=== PATIENT | female | born 1960 | race Caucasian/White ===

== ENCOUNTER 2018-11-07 15:48 | Emergency (ER) | payer BC ==
[2018-11-07] MEDS ORDERED: BOOSTRIX IM ONE (15:52)
--- NOTE | 2018-11-07 15:53 | Emergency Department Report ---
Blank Doc - Documentation Documentation: This is a 57-year-old female that presents with left middle finger lac that oc curred today. Stated was cutting kitchen and knife cut her. Denies any other compilations. stated is unsure about tetanus. This initial assessment diagnostic orders/clinical plan/treatment(s) is/are subject to change based on patient's health status, clinical progression and re- assessment by fellow clinical providers in the ED. Further treatment and workup at subsequent clinical providers discretion. Patient/guardians urged not to elope from ED s their condition may be serious if not clinically assessed and managed. Initial orders include: 1-patient sent to [facility] for further evaluation and treatment. 2- tetanus ordered
[2018-11-07 15:59] VITALS: BP 187/85
--- NOTE | 2018-11-07 17:18 | Emergency Department Report ---
ED Laceration HPI - HPI Chief Complaint: Wound/Laceration Stated Complaint: LEFT FINGER INJURY Time Seen by Provider: 11/07/18 15:51 Tetanus Status: Up to Date Laceration Symptoms: No Foreign Body Sensation, No Numbness, No Weakness Other History: Patient is a 57-year-old female was in presents to the ED complaining of a laceration to her finger. Patient was in the kitchen when she accidentally cut herself. ED Review of Systems ROS: Stated complaint: LEFT FINGER INJURY Other details as noted in HPI Constitutional: denies: chills, fever Eyes: denies: eye pain, eye discharge, vision change ENT: denies: ear pain, throat pain Respiratory: denies: cough, shortness of breath, wheezing Cardiovascular: denies: chest pain, palpitations Endocrine: no symptoms reported Gastrointestinal: denies: abdominal pain, nausea, diarrhea Genitourinary: denies: urgency, dysuria, discharge Musculoskeletal: denies: back pain, joint swelling, arthralgia Skin: denies: rash, lesions Neurological: denies: headache, weakness, paresthesias Psychiatric: denies: anxiety, depression Hematological/Lymphatic: denies: easy bleeding, easy bruising ED Past Medical Hx - Past Medical History Previous Medical History?: Yes Hx Diabetes: Yes - Surgical History Past Surgical History?: No - Social History Smoking Status: Never Smoker Substance Use Type: Prescribed - Medications Home Medications: Home Medications Medication Instructions Recorded Confirmed Last Taken Type Ibuprofen [Motrin] 600 mg PO Q8H PRN #30 tablet 11/07/18 Unknown Rx cephALEXin [Keflex] 500 mg PO Q12HR #10 cap 11/07/18 Unknown Rx Laceration Physical Exam - Exam General: Vital signs noted. No distress. Alert and acting appropriately. Laceration Location: Upper Extremity (middle finger) Laceration Exam: Yes Normal Distal CMS, No Foreign Body, No Exposed Tendon, Vessel, or Nerve, No Tendon Injury ED Course Vital Signs 11/07/18 11/07/18 15:54 15:57 Temperature 97.5 F L Pulse Rate 119 H Respiratory 20 20 Rate Blood Pressure 187/85 O2 Sat by Pulse 99 99 Oximetry ED Medical Decision Making - Medical Decision Making The 1cm laceration wound was prepped and draped in sterile fashion. Anesthesia was achieved with 4mL of 1% lidocaine. The wound was irrigated with 200cc NS and explored. There were no foreign bodies The wound was reapproximated in 1 layer with 6 sutures suing with three 3-0 monofilament sutures in the dermis with continuous sutures percutaneously. There was excellent reapproximation of the wound edges. The patient tolerated the procedure without complication Tetanus was given in ED today Discussed the patient to return in 7-10 days for suture removal Critical care attestation.: If time is entered above; I have spent that time in minutes in the direct care of this critically ill patient, excluding procedure time. ED Disposition Clinical Impression: Finger laceration Disposition: DC-01 TO HOME OR SELFCARE Is pt being admited?: No Does the pt Need Aspirin: No Condition: Stable Instructions: Suture Care (ED), Finger Laceration (ED) Additional Instructions: Make sure to follow up with the primary care physician as discussed. Take all your medications as you've been prescribed. Return to ED in 7-10 days for suture removal If you have any worsening symptoms or develop new symptoms please return to ED immediately. Prescriptions: cephALEXin [Keflex] 500 mg PO Q12HR #10 cap Ibuprofen [Motrin] 600 mg PO Q8H PRN #30 tablet PRN Reason: Pain Referrals: [facility] [Outside] - 3-5 Days Forms: Accompanied Note, Work/School Release Form(ED) Time of Disposition: 18:22
== END 2018-11-07 18:34 | disposition home or self-care (01) ==
LOC: ED 15:48
DX: S61.213A Laceration without foreign body of left middle finger without damage to nail, initial encounter (principal); E11.9 Type 2 diabetes mellitus without complications; W45.8XXA Other foreign body or object entering through skin, initial encounter; Y93.89 Activity, other specified; Y92.89 Other specified places as the place of occurrence of the external cause; Y99.8 Other external cause status
CPT/HCPCS: 90471; 90715; 99282

== ENCOUNTER 2018-11-15 09:26 | Emergency (ER) | payer BC ==
--- NOTE | 2018-11-15 10:17 | Emergency Department Report ---
Suture/Staple Removal - [facility] Chief Complaint: Laceration/Recheck/Suture Stated Complaint: STITCHES REMOVAL Time Seen by Provider: 11/15/18 09:52 When Sutures or [place] Placed: 8-10 Days Ago Wound Location: finger ED Review of Systems ROS: Stated complaint: STITCHES REMOVAL Other details as noted in HPI Comment: All other systems reviewed and negative ED Past Medical Hx - Past Medical History Previous Medical History?: Yes Hx Diabetes: Yes - Surgical History Past Surgical History?: Yes - Social History Smoking Status: Never Smoker Substance Use Type: None - Medications Home Medications: Home Medications Medication Instructions Recorded Confirmed Last Taken Type Ibuprofen [Motrin] 600 mg PO Q8H PRN #30 tablet 11/07/18 Unknown Rx cephALEXin [Keflex] 500 mg PO Q12HR #10 cap 11/07/18 Unknown Rx Suture Removal Exam - Exam General: Vital signs noted. No distress. Alert and acting appropriately. Wound: Yes Wound Dehiscence, No Pathologic Erythema, No Tenderness, No Drainage, No Pus Other Systems: All other systems reviewed and are unremarkable. ED Course Vital Signs 11/15/18 09:35 Temperature 97.5 F L Pulse Rate 97 H Respiratory 16 Rate Blood Pressure 170/68 [Left] O2 Sat by Pulse 100 Oximetry ED Recheck MDM - Medical Decision Making 57-year-old female presents with laceration suture removal. Sutures removed without any problem from the finger. No one today since. Healing well Discuss follow-up care physician. Critical care attestation.: If time is entered above; I have spent that time in minutes in the direct care of this critically ill patient, excluding procedure time. ED Disposition Clinical Impression: Visit for suture removal Disposition: TO HOME OR SELFCARE Is pt being admited?: No Does the pt Need Aspirin: No Condition: Stable Instructions: Acute Wound Care (ED) Additional Instructions: Make sure to follow up with the primary care physician as discussed. Take all your medications as you've been prescribed. If you have any worsening symptoms or develop new symptoms please return to ED immediately. Referrals: [facility] [Outside] - 3-5 Days [facility] [Outside] - 3-5 Days Time of Disposition: :17
== END 2018-11-15 10:28 | disposition home or self-care (01) ==
LOC: ED 09:26

== ENCOUNTER 2019-09-24 09:55 | Emergency (ER) | payer BC ==
[2019-09-24] MEDS ORDERED: LIDOCAINE (1%) 10 MG/1 ML VIAL 20 ML MDV INFILTRATI ONE (11:57)
--- NOTE | 2019-09-24 12:23 | Emergency Department Report ---
- General Chief complaint: Skin/Abscess/Foreign Body Stated complaint: RT UNDER ARM BOIL Time Seen by Provider: 09/24/19 11:52 Source: patient Mode of arrival: Ambulatory Limitations: No Limitations - History of Present Illness Initial comments: patient is a 58-year-old female presents emergency room with complaints of an abscess to the right axilla that began 2 weeks ago. She denies any drainage, fever, vomiting, chills, any other symptoms. She states that this has happened before. She states that she does shave her underarms. She has a PMHx of DM. she denies any allergies to medications. - Related Data Previous Rx's Medication Instructions Recorded Last Taken Type Ibuprofen [Motrin] 600 mg PO Q8H PRN #30 tablet 11/07/18 Unknown Rx cephALEXin [Keflex] 500 mg PO Q12HR #10 cap 11/07/18 Unknown Rx Allergies Allergy/AdvReac Type Severity Reaction Status Date / Time No Known Allergies Allergy Unverified 11/07/18 15:59 Abscess Boil HPI - HPI Chief Complaint: Skin/Abscess/Foreign Body Stated Complaint: RT UNDER ARM BOIL Time Seen by Provider: 09/24/19 11:52 Home Medications: Previous Rx's Medication Instructions Recorded Last Taken Type Ibuprofen [Motrin] 600 mg PO Q8H PRN #30 tablet 11/07/18 Unknown Rx cephALEXin [Keflex] 500 mg PO Q12HR #10 cap 11/07/18 Unknown Rx Allergies/Adverse Reactions: Allergies Allergy/AdvReac Type Severity Reaction Status Date / Time No Known Allergies Allergy Unverified 11/07/18 15:59 ED Review of Systems ROS: Stated complaint: RT UNDER ARM BOIL Other details as noted in HPI Comment: All other systems reviewed and negative ED Past Medical Hx - Past Medical History Hx Diabetes: Yes - Social History Smoking Status: Never Smoker Substance Use Type: None - Medications Home Medications: Home Medications Medication Instructions Recorded Confirmed Last Taken Type Ibuprofen [Motrin] 600 mg PO Q8H PRN #30 tablet 11/07/18 Unknown Rx cephALEXin [Keflex] 500 mg PO Q12HR #10 cap 11/07/18 Unknown Rx ED Physical Exam - General Limitations: No Limitations General appearance: alert, in no apparent distress - Head Head exam: Present: atraumatic, normocephalic - Eye Eye exam: Present: normal appearance - ENT ENT exam: Present: mucous membranes moist - Neurological Exam Neurological exam: Present: alert, oriented X3 - Psychiatric Psychiatric exam: Present: normal affect, normal mood - Skin Skin exam: Present: warm, dry, other (3 cm area of induration and fluctuance to the right axilla, no active drainage, no opening, no necrosis) ED Course Vital Signs 09/24/19 10:17 Temperature 97.6 F Pulse Rate 102 H Respiratory 16 Rate Blood Pressure 136/54 O2 Sat by Pulse 98 Oximetry - I & D Right Arm Type of Procedure: Simple Site: right axilla Blade Size: 11 I & D Procedure: betadine prep, sterile drapes applied, sterile dressing applied Progress: Area prepped with Betadine, 3 mL of 2% lidocaine without epinephrine used as anesthetic, Betadine prep again, sterile drapes applied, 1 cm incision made with 11 blade, moderate amount of purulent drainage and sebaceous-like material expressed, irrigated with saline, iodoform gauze packing, sterile dressing applied, patient tolerated well, no complications, bleeding controlled. ED Medical Decision Making - Medical Decision Making patient is a 58-year-old female presents emergency room with complaints of an abscess to the right axilla that began 2 weeks ago. She denies any drainage, fever, vomiting, chills, any other symptoms. She states that this has happened before. She states that she does shave her underarms. She has a PMHx of DM. she denies any allergies to medications. VSS. on exam:3 cm area of induration and fluctuance to the right axilla, no active drainage, no opening, no necrosis. incision and drainage performed per procedure note. advised patient to please keep area clean, dry, covered. Do not shave your armpits, throw away your razor. May wash with soap and water and immediately dry. No hot tub, pool, soaking in water. Packing needs to be removed in 2 days may return to the emergency room for removal or go to your primary care clinic. Follow-up with a primary care doctor. Return to the emergency room for any new or worsening symptoms. Critical care attestation.: If time is entered above; I have spent that time in minutes in the direct care of this critically ill patient, excluding procedure time. ED Disposition Clinical Impression: Abscess of right axilla Disposition: TO HOME OR SELFCARE Is pt being admited?: No Does the pt Need Aspirin: No Condition: Stable Instructions: Abscess Incision and Drainage (ED) Additional Instructions: please keep area clean, dry, covered. Do not shave your armpits, throw away your razor. May wash with soap and water and immediately dry. No hot tub, pool, soaking in water. Packing needs to be removed in 2 days may return to the emergency room for removal or go to your primary care clinic. Follow-up with a primary care doctor. Return to the emergency room for any new or worsening symptoms. Referrals: PRIMARY CARE, [Primary Care Provider] - 2-3 Days Time of Disposition: 13:02 Print Language: [place]
[2019-09-24 13:12] VITALS: BP 130/50
== END 2019-09-24 13:11 | disposition home or self-care (01) ==
LOC: ED 09:55
DX: L02.411 Cutaneous abscess of right axilla (principal); E11.9 Type 2 diabetes mellitus without complications; Z79.899 Other long term (current) drug therapy

== ENCOUNTER 2019-09-26 11:56 | Emergency (ER) | payer BC ==
[2019-09-26 12:05] VITALS: BP 161/88
--- NOTE | 2019-09-26 12:07 | Emergency Department Report ---
Suture/Staple Removal - [facility] Chief Complaint: Laceration/Recheck/Suture Stated Complaint: WOUND PACKING Time Seen by Provider: 09/26/19 12:02 When Sutures or [place] Placed: 2 days Wound Location: right axilla ED Review of Systems ROS: Stated complaint: WOUND PACKING Other details as noted in HPI Constitutional: denies: chills, fever Eyes: denies: eye pain, eye discharge, vision change ENT: denies: ear pain, throat pain Respiratory: denies: cough, shortness of breath, wheezing Cardiovascular: denies: chest pain, palpitations Endocrine: no symptoms reported Gastrointestinal: denies: abdominal pain, nausea, diarrhea Genitourinary: denies: urgency, dysuria, discharge Musculoskeletal: denies: back pain, joint swelling, arthralgia Skin: denies: rash, lesions Neurological: denies: headache, weakness, paresthesias Psychiatric: denies: anxiety, depression Hematological/Lymphatic: denies: easy bleeding, easy bruising ED Past Medical Hx - Past Medical History Previous Medical History?: Yes Hx Diabetes: Yes - Social History Smoking Status: Never Smoker Substance Use Type: None - Medications Home Medications: Home Medications Medication Instructions Recorded Confirmed Last Taken Type Ibuprofen [Motrin] 600 mg PO Q8H PRN #30 tablet 11/07/18 Unknown Rx cephALEXin [Keflex] 500 mg PO Q12HR #10 cap 11/07/18 Unknown Rx Suture Removal Exam - Exam General: Vital signs noted. No distress. Alert and acting appropriately. Wound: No Pathologic Erythema, No Tenderness, No Drainage, No Pus, No Wound Dehiscence Other Systems: All other systems reviewed and are unremarkable. ED Course Vital Signs 09/26/19 12:00 Temperature 98.3 F Pulse Rate 107 H Respiratory 16 Rate Blood Pressure 161/88 [Right] O2 Sat by Pulse 98 Oximetry - Reevaluation(s) Reevaluation #1: 09/26/19 12:06 Patient is speaking in full sentences with no signs of distress noted. ED Recheck MDM - Medical Decision Making 09/24 axilla abscess packing removed. Patient tolerated well. no signs of cellulitis or abscess noted. Eduacated on wound care. Patient was instructed to Follow-up with a primary care doctor in 3-5 days or if symptoms worsen and continue return to emergency room as soon as possible. At time of discharge, the patient does not seem toxic or ill in appearance. No acute signs of distress noted. Patient agrees to discharge treatment plan of care. No further questions noted by the patient. Critical care attestation.: If time is entered above; I have spent that time in minutes in the direct care of this critically ill patient, excluding procedure time. ED Disposition Clinical Impression: Encounter for abscess packing removal Disposition: DC-01 TO HOME OR SELFCARE Is pt being admited?: No Does the pt Need Aspirin: No Condition: Stable Instructions: Acute Wound Care (ED) Additional Instructions: Follow-up with a primary care doctor in 3-5 days or if symptoms worsen and continue return to emergency room as soon as possible. Referrals: PRIMARY MD TRE [Primary Care Provider] - 3-5 Days MAHESH LAINEZ MD [Staff Physician] - 3-5 Days
== END 2019-09-26 12:11 | disposition home or self-care (01) ==
LOC: ED 11:56
DX: Z48.01 Encounter for change or removal of surgical wound dressing (principal); E11.9 Type 2 diabetes mellitus without complications; Z53.21 Procedure and treatment not carried out due to patient leaving prior to being seen by health care provider